=== PATIENT | male | born 1935 | race Hispanic/Latino ===

== ENCOUNTER → 2023-11-05 | Outpatient (CLI) | payer OTHER ==
[2023-11-05 16:45] LABS: POTASSIUM 4.3 mmol/L (3.5-5.1)
== END | disposition home or self-care (01) ==
LOC: LAB 14:26
PROVIDERS: ATTEND Internal Medicine Cardiovascular Disease
DX: I73.9 Peripheral vascular disease, unspecified (principal)
CPT/HCPCS: 36415; 80048

== ENCOUNTER → 2023-11-11 | Outpatient (CLI) | payer OTHER ==
[~2023-11-11] MED LIST: IOHEXOL 350 MG/ML 100ML INFUS..BTL IV ONE; IOHEXOL-350 50ML VIAL IV ONE; IOHEXOL-350 75 ML VIAL IV ONE
== END | disposition home or self-care (01) ==
LOC: RAH 07:33
PROVIDERS: ATTEND Internal Medicine Cardiovascular Disease
DX: I70.8 Atherosclerosis of other arteries (principal); I73.9 Peripheral vascular disease, unspecified; I67.9 Cerebrovascular disease, unspecified; I70.0 Atherosclerosis of aorta
CPT/HCPCS: 75635; Q9967 ×3

== ENCOUNTER 2023-12-08 05:46 | Day surgery (SDC) | payer OTHER ==
[2023-12-04 13:51] LABS: BASOPHILS # (AUTO) 0.02 K/uL (0.00-0.20); BASOPHILS % (AUTO) 0.3 % (0.0-5.0); EOSINOPHILS # (AUTO) 0.21 K/uL (0.00-0.70); HEMATOCRIT 41.3 % (42-54); IMMATURE GRANULOCYTE ABSOLUTE 0.03 K/uL (0-1); LYMPHOCYTES # (AUTO) 0.9 K/uL (1.0-4.8); LYMPHOCYTES % (AUTO) 13.3 % (21.0-51.0); MEAN CORPUSCULAR HEMOGLOBIN 29.6 pg (27.0-33.0); MEAN CORPUSCULAR HGB CONC 33.4 g/dL (32.0-36.0); MEAN CORPUSCULAR VOLUME 88.6 fL (79-99); MONOCYTES # (AUTO) 0.4 K/uL (0.1-1.0); MONOCYTES % (AUTO) 5.8 % (3.0-13.0); NEUTROPHILS # (AUTO) 5.5 K/uL (1.8-7.7); NEUTROPHILS % (AUTO) 77.2 % (40.0-77.0); PLATELET COUNT (AUTO) 162 K/uL (130-400); RED BLOOD CELL COUNT(AUTO) 4.66 MIL/uL (4.50-6.20); RED CELL DISTRIBUTION WIDTH 12.8 % (11.0-15.5); WHITE BLOOD COUNT (AUTO) 7.1 K/uL (4.8-10.8)
[2023-12-04 14:04] LABS: INR 0.98 (0.85-1.15); PROTHROMBIN TIME 11.4 SEC (9.6-11.6)
[2023-12-04 14:05] VITALS: BP 155/74; PULSE 61; RESP 18
[2023-12-04 14:05] LABS: PARTIAL THROMBOPLASTIN TIME 29.8 SEC (26.3-35.5)
[2023-12-04 14:15] LABS: CREATININE 1.2 mg/dL (0.5-1.5); POTASSIUM 4.1 mmol/L (3.5-5.1)
[2023-12-04 14:21] LABS: B-TYPE NATRIURETIC PEPTIDE 33 pg/mL (0-100)
[2023-12-08] VITALS (11 sets, daily range): BP systolic 101–153; BP diastolic 58–88; PULSE 55–65; RESP 12–16
[~2023-12-08] VITALS: Ht 175.3 cm; Wt 63.4 kg
[~2023-12-08 05:46] MED LIST changes: +ASPI-1197 PO; +CICL34.62 TP; +CLOP75TA32 PO; +CLOT15CR5 TP; -IOHEXOL 350 MG/ML 100ML INFUS..BTL IV ONE; -IOHEXOL-350 50ML VIAL IV ONE; -IOHEXOL-350 75 ML VIAL IV ONE; +LEVO25TA54 PO; +LISI40TA9 PO; +ROSU5TAB12 PO
[2023-12-08] MEDS: 0.9%NACL 1000ML 1,000 ML IV ONE (06:43)
[2023-12-08] MEDS ORDERED: NICARDIPINE 25MG INJ IV ONE (07:15)
[2023-12-08] MEDS ORDERED: HEPARIN 10,000 UNIT/10ML (1,000 UNIT/ML) VIAL ONE (07:15)
[2023-12-08] MEDS ORDERED: IODIXANOL 320 MG/ML 100 ML VIAL ONE (07:15)
[2023-12-08] MEDS ORDERED: LIDOCAINE HCL 400MG/20ML VIAL ONE (07:15)
[2023-12-08] MEDS ORDERED: NITROGLYCERIN 50MG VIAL ONE (07:15)
[2023-12-08] MEDS ORDERED: MIDAZOLAM HCL 1 MG/ML 2ML VIAL ONE (07:35)
[2023-12-08] MEDS ORDERED: FENTANYL CITRATE PF 50 MCG/1 ML 2ML VIAL ONE (07:35)
[2023-12-08] MEDS ORDERED: CLOPIDOGREL 300MG TAB ONE (08:24)
[2023-12-08] MEDS ORDERED: GLUCAGON 1MG KIT 1 MG ML IM PRN (10:00)
[2023-12-08] MEDS ORDERED: DEXTROSE 50%-WATER 50 ML DISP.SYRIN IV PRN (10:00)
[2023-12-08] MEDS: 0.9%NACL 1000ML 1,000 ML IV SCH (11:42)
== END 2023-12-08 14:55 | disposition home or self-care (01) ==
LOC: DAH 05:46
PROVIDERS: ATTEND Internal Medicine Cardiovascular Disease
DX: I70.248 Atherosclerosis of native arteries of left leg with ulceration of other part of lower leg (principal); L97.828 Non-pressure chronic ulcer of other part of left lower leg with other specified severity; E11.51 Type 2 diabetes mellitus with diabetic peripheral angiopathy without gangrene; I70.92 Chronic total occlusion of artery of the extremities; I10 Essential (primary) hypertension; E78.49 Other hyperlipidemia; Z79.01 Long term (current) use of anticoagulants; Z79.899 Other long term (current) drug therapy; Z79.82 Long term (current) use of aspirin; Z98.890 Other specified postprocedural states; Z79.890 Hormone replacement therapy; Z86.73 Personal history of transient ischemic attack (TIA), and cerebral infarction without residual deficits
CPT/HCPCS: 80048; 83880; 85025; 85610; 85730; 36415 ×2; 71045; 93005; 75716; 85347 ×2; 82948 ×2; C9772; C1887; C1894 ×2; C1760; C1893; C1769 ×3; C1725 ×3; J3010; J3490 ×3; J7030; J1644 ×3; J2250; Q9967; A4215; A4222; A4221; A4663; A4216; A4606; A4223 ×3; 96360; 96361; 99156; 99157